=== PATIENT | male | born 1980 | race Caucasian/White ===

== ENCOUNTER 2022-07-01 00:16 | Emergency (ER) | payer MEDICAID, SELFPAY ==
[2022-07-01 00:19] VITALS: BP 142/92; PULSE 71; RESP 18; TEMP 36.8; O2SAT 99; BMI 22.6
--- NOTE | 2022-07-01 00:27 | W.ED.WOUNDLC ---
HPI - Wound/Laceration General: Chief Complaint: Wound/Laceration Stated Complaint: left arm infection Time Seen by Provider: 07/01/22 00:27 History of Present Illness: Patient comes in today with complaints of a wound to the left forearm. Patient states that it started 3 to 4 days ago as a small pimple but since getting incarcerated he has noticed increasing size to the area. Patient reports no prior similar lesions. Patient at this time is incarcerated in the [facility] custodial. Associated symptoms: Denies fever(s) Review of Systems General: Reports: 10 or more systems reviewed and unremarkable except in HPI and below Const: Denies: fever(s) Card: Denies: chest pain Resp: Denies: dyspnea Musc: Reports: extremity pain Skin/Breast: Reports: new lesions Physical Exam Const: COMMON NORMALS: alert HENMT: COMMON NORMALS: normocephalic HEAD & SCALP: normocephalic Neck/C-Spine: COMMON NORMALS: full ROM Resp: COMMON NORMALS: normal respiratory effort Cardio: COMMON NORMALS: regular rate RATE: regular rate Extremity: LEFT UPPER EXTREMITY: Yes lower arm (Carbuncle noted to the left lower arm with surrounding redness approximatel) Neuro: SENSORIUM/ORIENTATION: Yes alert Skin: LESIONS: lesion noted (Left lower arm.) Course Vital Signs: Vital signs: Vital Signs Temperature 98.2 F 07/01/22 00:19 Pulse Rate 71 07/01/22 00:19 Respiratory Rate 18 07/01/22 00:19 Blood Pressure 142/92 07/01/22 00:19 Pulse Oximetry 99 07/01/22 00:19 Oxygen Delivery Me thod 07/01/22 00:19 MDM - Wound/Laceration Medical Decision Making Patient comes in for a wound to the left lower arm. On exam patient has a indurated lesion to the left forearm with surrounding area of 5 cm. Patient has multiple purulent heads to the central lesion. Differential diagnosis includes abscess, cellulitis, staph infection, carbuncle/furuncle. Believe the patient probably has a staph infection exhibited as a carbuncle. Recommend warm moist packs to the area. Antibiotics Bactrim and mupirocin. Patient reported understanding agreed to plan. Discharge Plan Discharge Patient Disposition: Home Clinical Impression: Carbuncle and furuncle of upper arm and forearm Condition: Stable Prescriptions: New Bactrim DS 800-160 mg tablet 1 tab PO DAILY 7 Days Qty: 14 0RF mupirocin 2 % ointment 1 applic topical BID Qty: 22 0RF Discharge Orders: Discharge ED (Routine); Ordered 07/01/22 Ordered By: Johan Norris Discharge Diet: Usual diet Discharge Activity: Increase activity as tolerated Patient Instructions: Wound Infection (ED) Activity Restrictions/Additional Instructions: Wash wound gently with mild soap and water 2 times a day, apply antibiotic ointment mupirocin. Take Bactrim 1 tablet twice a day for 7 days. Use warm moist packs to the area. Drink plenty of water with antibiotics. Use acetaminophen or ibuprofen for pain and discomfort. Cover the wound around other individuals to prevent spread of infection. Do not share towels with other individuals. Follow-up with primary care in 3 days for recheck. Return to ER for high fever greater than 100.4, inability to hold fluids down, or new concerns. Coding Level of Care Code ED [employer] In[employer] for [employer]
[2022-07-01] MEDS: sulfamethoxazole-trimeth DS 160-800 mg Tablet 1 TAB PO (00:45)
[2022-07-01] MEDS: mupirocin oint 22 gm 1 APPLIC TOPICAL (00:50)
[2022-07-01 00:56] VITALS: PULSE 68; O2SAT 99
== END 2022-07-01 00:59 | disposition home or self-care (01) ==
PROVIDERS: Emergency Provider Nurse Practitioner Family
DX: L02.434 Carbuncle of left upper limb (principal)
CPT/HCPCS: 99283; A6446